=== PATIENT | female | born 1975 | race Caucasian/White ===

== ENCOUNTER 2017-05-03 01:29 | Emergency (ER) | payer OTHER ==
[2017-05-03 01:35] VITALS: BP 125/72; PULSE 87; RESP 18; TEMP 97.2; O2SAT 100
[2017-05-03] MEDS ORDERED: SODIUM CHLOR 0.9% 1000 ML INJ 1,000 ML IV ONE ×2 (01:45→03:00)
[2017-05-03] MEDS ORDERED: ONDANSETRON HCL 4 MG/2 ML VIAL IV PUSH ONE (01:45)
--- NOTE | 2017-05-03 01:48 | PD ---
HPI Chief Complaint: Alcohol/Drug Intoxication Time Seen by Provider: 01:35 Travel History International Travel<30 days: No Contact w/Intl Traveler<30days: No Traveled to known affect area: No History of Present Illness HPI This is a middle-aged white female who presents to emergency department by EMS due to alcohol intoxication. EMS was summoned and responsive an intoxicated female. She was in the custody of her boyfriend was unable to care for her due to her level of her intoxication. The patient here is somnolent and is obviously vomited on herself. She is poorly arousable. No meaningful history is obtainable. [facility] Past Medical History Medical History: Unable to Obtain ?: Unknown Past Surgical History Surgical History: Unable to Obtain Social History Alcohol Use: Yes Tobacco Use: No Substance Use: Yes Allergies-Medications (Allergen,Severity, Reaction): Coded Allergies: No Allergy Information Available (Unverified , 05/03/17) Reported Meds & Prescriptions Reported Meds & Active Scripts Active Active Prescriptions or Reported Medications Unobtainable Review of Systems ROS Limitations: Intoxication Physical Exam Narrative GENERAL: This is a well-nourished, well-developed patient, who apparently vomited on herself. She is heavily intoxicated. She is somnolent and hard to arouse. She is placed on a monitoring and evaluation advisor as well as set monitor. She is maintaining a normal saturation. She has a poor gag. No evidence of aspiration. No evidence of head injury. SKIN: No rashes, ecchymoses or lesions. Warm and dry. HEAD: Atraumatic. Normocephalic. EYES: Disconjugate gaze, the right pupil is irregular I suspect this is from old trauma, no discharge or injection. No scleral icterus. EARS: Clear NOSE: Nasal turbinates appear normal. THROAT: Evidence of vomiting in the mouth. She has a decreased gag. NECK: Trachea midline. supple, moves head freely. LUNGS: Clear to auscultation. CV: Regular in rhythm. ABDOMEN: Soft nontender. EXT: No clubbing cyanosis or edema. Data Data Last Documented VS Vital Signs Date Time Temp Pulse Resp B/P (MAP) Pulse Ox O2 Delivery O2 Flow Rate FiO2 05/03/17 01:35 97.2 87 18 125/72 (89) 100 Orders Orders Complete Blood Count With Diff (05/03/17 01:41) Basic Metabolic Panel (Bmp) (05/03/17 01:41) Iv Access Insert/Monitor (05/03/17 01:41) Ecg Monitoring (05/03/17 01:41) Oximetry (05/03/17 01:41) Alcohol (Ethanol) (05/03/17 01:41) Sodium Chlor 0.9% 1000 Ml Inj (Ns 1000 M (05/03/17 01:45) Ondansetron Inj (Zofran Inj) (05/03/17 01:45) Protein Corrected Calcium(Pcc) (05/03/17 01:45) Sodium Chlor 0.9% 1000 Ml Inj (Ns 1000 M (05/03/17 03:00) Calcium Gluconate Inj (Calcium Gluconate (05/03/17 03:00) Labs Laboratory Tests Test 05/03/17 01:45 White Blood Count 8.6 TH/MM3 Red Blood Count 4.24 MIL/MM3 Hemoglobin 13.5 GM/DL Hematocrit 40.0 % Mean Corpuscular Volume 94.3 FL Mean Corpuscular Hemoglobin 31.8 PG Mean Corpuscular Hemoglobin Concent 33.7 % Red Cell Distribution Width 12.5 % Platelet Count 199 TH/MM3 Mean Platelet Volume 7.3 FL Neutrophils (%) (Auto) 77.1 % Lymphocytes (%) (Auto) 18.5 % Monocytes (%) (Auto) 3.8 % Eosinophils (%) (Auto) 0.2 % Basophils (%) (Auto) 0.4 % Neutrophils # (Auto) 6.6 TH/MM3 Lymphocytes # (Auto) 1.6 TH/MM3 Monocytes # (Auto) 0.3 TH/MM3 Eosinophils # (Auto) 0.0 TH/MM3 Basophils # (Auto) 0.0 TH/MM3 CBC Comment DIFF FINAL Differential Comment Blood Urea Nitrogen 8 MG/DL Creatinine 0.55 MG/DL Random Glucose 117 MG/DL Total Protein 6.6 GM/DL Calcium Level 7.1 MG/DL Sodium Level 143 MEQ/L Potassium Level 3.5 MEQ/L Chloride Level 112 MEQ/L Carbon Dioxide Level 19.2 MEQ/L Anion Gap 12 MEQ/L Estimat Glomerular Filtration Rate 95 ML/MIN Protein Corrected Calcium 7.4 MG/DL Ethyl Alcohol Level 215 MG/DL [facility] Medical Decision Making Medical Screen Exam Complete: Yes Emergency Medical Condition: Yes Medical Record Reviewed: Yes Differential Diagnosis Differential diagnoses: Alcohol intoxication, substance abuse, electrolyte abnormality, malingering Narrative Course IV access is initiated. Patient's on a pvc monitor as well as sat monitoring. The nursing staff will monitor the patient closely to ensure she maintains airway as well as aspiration concerns. Patient's given a liter bolus of saline and 4 mg of Zofran IV. Patient is given 1 g of calcium IV. The patient has continued to sober up here in the ER. She's been up and ambulatory to the bathroom. When the patient appears sober she will be medically cleared and discharged. This is alcohol intoxication, hypocalcemia Diagnosis Primary Impression: Alcohol intoxication Qualified Codes: F10.920 - Alcohol use, unspecified with intoxication, uncomplicated Additional Impression: Hypocalcemia Patient Instructions: General Instructions Additional Instructions: Rest. Increase fluids. Avoid alcohol. Avoid illegal substances. Follow-up with [facility] for detox. Do not operate a car or any heavy machinery under the influence of alcohol or drugs. Follow-up with a medical doctor this week. Return to the ER for emergencies Med/Other Pt SpecificInfo: No Meds Exist/No RX given Scripts Unable to Obtain Active Prescriptions or Reported Meds Disposition: DISCHARGE HOME Condition: Stable [place] May 03, 2017 01:48
[2017-05-03 02:08] LABS: AUTOMATED NEUTROPHIL # 6.6 TH/MM3 (1.8-7.7); BASOPHIL % 0.4 % (0.0-2.0); EOSINOPHIL % 0.2 % (0.0-4.0); HEMOGLOBIN 13.5 GM/DL (11.6-15.3); LYMPH % 18.5 % (9.0-44.0); LYMPHOCYTE # 1.6 TH/MM3 (1.0-4.8); MEAN CELL VOLUME 94.3 FL (80.0-100.0); MEAN CORPUSCULAR HEMOGLOBIN 31.8 PG (27.0-34.0); MEAN CORPUSCULAR HGB CONC 33.7 % (32.0-36.0); MEAN PLATELET VOLUME 7.3 FL (7.0-11.0); MONO % 3.8 % (0.0-8.0); MONOCYTE # 0.3 TH/MM3 (0-0.9); NEUT % 77.1 % (16.0-70.0); PLATELET COUNT 199 TH/MM3 (150-450); RED BLOOD COUNT 4.24 MIL/MM3 (4.00-5.30); RED CELL DISTRIBUTION WIDTH 12.5 % (11.6-17.2); WHITE BLOOD COUNT 8.6 TH/MM3 (4.0-11.0)
[2017-05-03 02:47] LABS: BICARBONATE 19.2 MEQ/L (21.0-32.0); CALCIUM 7.1 MG/DL (8.5-10.1); CREATININE 0.55 MG/DL (0.50-1.00)
[2017-05-03] MEDS ORDERED: CALCIUM GLUCONATE 10% 1 GM/10 ML VIAL IV PUSH ONE (03:00)
[2017-05-03 03:02] LABS: TOTAL PROTEIN 6.6 GM/DL (6.4-8.2)
[2017-05-03 03:08] LABS: CALCIUM-PROTEIN CORRECTED 7.4 MG/DL (8.5-10.1)
== END 2017-05-03 09:34 | disposition home or self-care (01) ==
LOC: NEPD 01:29
DX: F10.920 Alcohol use, unspecified with intoxication, uncomplicated (principal); E83.51 Hypocalcemia; Y90.7 Blood alcohol level of 200-239 mg/100 ml
CPT/HCPCS: 80048; 80307; 84155; 85025; 96361; 96374; 96375; 99284; J0610; J2405; J7030